=== PATIENT | male | born 1945 | race Caucasian/White ===

== ENCOUNTER 2018-05-15 09:36 | Emergency (ER) | payer MEDICARE, BC ==
[2018-05-15 10:16] LABS: #Lymphocytes 1.2 thou/uL (1.20-3.40); #Monocytes 0.3 thou/uL (0.11-0.59); #Neutrophils 2.7 thou/uL (1.40-6.50); %Basophils 0.2 % (0.0-1.0); %Eosinophils 0.6 % (0.0-10.0); %Lymphocytes 28.4 % (21.0-51.0); %Monocytes 8.1 % (0.0-10.0); %Neutrophils 62.7 % (42.0-75.0); Hemoglobin 15.7 g/dL (14.0-18.0); Mean Corpuscular HGB CONC 33.8 g/dL (32.0-36.0); Mean Corpuscular Hemoglobin 33.5 pg (27.0-31.0); Mean Corpuscular Volume 98.9 fL (78.0-98.0); Mean Platelet Volume 7.5 fL (7.4-10.4); Platelet Count 193 thou/uL (130-400); RBC Distribution Width 11.3 % (11.5-14.5); Red Blood Cell (RBC) Count 4.68 mill/uL (4.70-6.10); White Blood Cell (WBC) Count 4.2 thou/uL (4.8-10.8)
[2018-05-15 10:38] LABS: ALT (SGPT) 23 U/L (8-55); AST (SGOT) 22 U/L (5-34); Albumin 4.1 g/dL (3.4-4.8); Alkaline Phosphatase 83 U/L (40-150); Anion Gap 13 mmol/L (10-20); BUN (Urea Nitrogen) 13 mg/dL (8.4-25.7); Bilirubin, Total 0.8 mg/dL (0.2-1.2); CK (CPK) 102 U/L (30-200); Calc. Creatinine Clearance 0 mL/min (70-130); Calcium 9.2 mg/dL (7.8-10.44); Carbon Dioxide 26 mmol/L (23-31); Chloride 105 mmol/L (98-107); Estimated GFR-MDRD 90; Globulin 3.1 g/dL (2.4-3.5); Glucose 131 mg/dL (83-110); Potassium 4.2 mmol/L (3.5-5.1); Protein, Total 7.2 g/dL (5.8-8.1); Sodium 140 mmol/L (136-145)
--- NOTE | 2018-05-15 10:41 | RAD ---
SINGLE VIEW CHEST: Date: 05/15/18 COMPARISON: 01/24/16. HISTORY: Dizziness for 1 hour this morning. FINDINGS: Single view of the chest shows a normal sized cardiomediastinal silhouette. There is no evidence of c onsolidation, mass, or pleural effusion. The bones are unremarkable. IMPRESSION: No evidence of acute cardiopulmonary disease. POS: [facility]
--- NOTE | 2018-05-18 13:33 | EKG ---
Test Reason : Blood Pressure : / mmHG Vent. Rate : 073 BPM Atrial Rate : 073 BPM P-R Int : 104 ms QRS Dur : 092 ms QT Int : 400 ms P-R-T Axes : 035 -11 039 degrees QTc Int : 440 ms Sinus rhythm with short PA with Premature supraventricular complexes and with occasional Premature ve ntricular complexes Minimal voltage criteria for LVH, may be normal variant Nonspecific ST abnormality Abnormal ECG Confirmed by STALIN COFFEY, DOMINIQUE ([id number]), purchasing expeditor CHEYANNE GIL ([id number]) on 05/18/2018 1:32:52 PM Referred By: Confirmed By:DOMINIQUE GANT MD
== END 2018-05-15 11:38 | disposition home or self-care (01) ==
LOC: ERS 09:36
DX: R55 Syncope and collapse (principal); I10 Essential (primary) hypertension; E78.5 Hyperlipidemia, unspecified; Z79.899 Other long term (current) drug therapy
CPT/HCPCS: 36415; 71045; 80053; 82550; 83880; 84484; 85025; 93005

== ENCOUNTER 2018-08-05 10:01 | Emergency (ER) | payer MEDICARE, BC ==
[~2018-08-05 10:01] MED LIST: ISOVUE-370 76%-LOCM 1 ML ONE
[2018-08-05 10:44] LABS: #Lymphocytes 1.4 thou/uL (1.20-3.40); #Monocytes 0.5 thou/uL (0.11-0.59); %Basophils 0.1 % (0.0-1.0); %Eosinophils 0.5 % (0.0-10.0); %Lymphocytes 23.6 % (21.0-51.0); %Monocytes 8.3 % (0.0-10.0); %Neutrophils 67.6 % (42.0-75.0); Hemoglobin 15.1 g/dL (14.0-18.0); Mean Corpuscular HGB CONC 33.5 g/dL (32.0-36.0); Mean Corpuscular Hemoglobin 32.9 pg (27.0-31.0); Mean Corpuscular Volume 98.3 fL (78.0-98.0); Mean Platelet Volume 7.4 fL (7.4-10.4); Platelet Count 229 thou/uL (130-400); Red Blood Cell (RBC) Count 4.58 mill/uL (4.70-6.10); White Blood Cell (WBC) Count 5.9 thou/uL (4.8-10.8)
[2018-08-05 11:07] LABS: ALT (SGPT) 21 U/L (8-55); AST (SGOT) 21 U/L (5-34); Albumin 4.2 g/dL (3.4-4.8); Alkaline Phosphatase 74 U/L (40-150); Anion Gap 13 mmol/L (10-20); BUN (Urea Nitrogen) 14 mg/dL (8.4-25.7); Calc. Creatinine Clearance 0 mL/min (70-130); Calcium 9.4 mg/dL (7.8-10.44); Carbon Dioxide 24 mmol/L (23-31); Chloride 105 mmol/L (98-107); Estimated GFR-MDRD 84; Globulin 2.8 g/dL (2.4-3.5); Glucose 141 mg/dL (83-110); Sodium 138 mmol/L (136-145)
[2018-08-05 11:30] LABS: Bilirubin Negative (Negative); Blood, Urine Negative (Negative); Glucose, Urine (Dipstick) Negative (Negative); Leukocyte Negative (Negative); Nitrite Negative (Negative); Protein, Urine (Dipstick) Negative (Neg-Trace); Specific Gravity, Urine 1.015 (1.005-1.030); Urobilinogen 0.2 mg/dL (0.2-1.0)
[2018-08-05 11:32] LABS: Clarity Clear (Clear)
--- NOTE | 2018-08-05 11:56 | CT ---
CT ABDOMEN AND PELVIS WITH IV CONTRAST: HISTORY: Abdominal pain. FINDINGS: The lung bases are unremarkable. No calcified gallstones are seen. The liver, spleen, pancreas, adr enal glands, and right kidney are normal. A tiny low-density lesion in the left kidney is likely cys t. A tiny nonobstructing left renal calculus is seen in the inferior pole. No free air, free fluid, or lymphadenopathy is seen in the abdomen or pelvis. There are vascular liang cifications without evidence of aneurysmal dilatation of the abdominal aorta. There are degenerative changes in the spine. There are bilateral hip arthroplasties. The small bowel loops are not abnormally dilated. A normal-appearing appendix is seen. There is col onic diverticulosis without evidence of diverticulitis. A small hiatal hernia is present. IMPRESSION: 1. No evidence of appendicitis. 2. Colonic diverticulosis without diverticulitis. 3. Small hiatal hernia. 4. Tiny nonobstructing left renal calculus. POS: [facility]
== END 2018-08-05 12:11 | disposition home or self-care (01) ==
LOC: ERS 10:01
DX: R10.30 Lower abdominal pain, unspecified (principal); R11.2 Nausea with vomiting, unspecified; I10 Essential (primary) hypertension; E78.5 Hyperlipidemia, unspecified; Z79.899 Other long term (current) drug therapy
CPT/HCPCS: 36415; 74177; 80053; 81003; 85025; Q9966

== ENCOUNTER 2018-12-20 10:55 | Emergency (ER) | payer MEDICARE, BC ==
[2018-12-20 11:26] LABS: Bilirubin Negative (Negative); Blood, Urine Negative (Negative); Clarity Clear (Clear); Glucose, Urine (Dipstick) Normal (Negative); Leukocyte Negative Leu/uL (Negative); Nitrite Negative (Negative); Protein, Urine (Dipstick) Negative (Neg-Trace); Urobilinogen Normal mg/dL (Less than 2)
[2018-12-20 11:28] LABS: #Lymphocytes 1.4 thou/uL (1.20-3.40); #Monocytes 0.5 thou/uL (0.11-0.59); #Neutrophils 4.9 thou/uL (1.40-6.50); %Basophils 0.6 % (0.0-1.0); %Eosinophils 0.4 % (0.0-10.0); %Lymphocytes 20.4 % (21.0-51.0); %Neutrophils 71.6 % (42.0-75.0); Hemoglobin 15.6 g/dL (14.0-18.0); Mean Corpuscular HGB CONC 33.7 g/dL (32.0-36.0); Mean Corpuscular Hemoglobin 33.2 pg (27.0-31.0); Mean Corpuscular Volume 98.8 fL (78.0-98.0); Mean Platelet Volume 7.4 fL (7.4-10.4); Platelet Count 214 thou/uL (130-400); RBC Distribution Width 11.2 % (11.5-14.5); White Blood Cell (WBC) Count 6.8 thou/uL (4.8-10.8)
[2018-12-20 12:01] LABS: ALT (SGPT) 17 U/L (8-55); AST (SGOT) 20 U/L (5-34); Albumin 4.2 g/dL (3.4-4.8); Alkaline Phosphatase 76 U/L (40-150); Anion Gap 13 mmol/L (10-20); BUN (Urea Nitrogen) 12 mg/dL (8.4-25.7); Bilirubin, Total 0.8 mg/dL (0.2-1.2); Calc. Creatinine Clearance 0 mL/min (70-130); Calcium 9.4 mg/dL (7.8-10.44); Carbon Dioxide 25 mmol/L (23-31); Chloride 105 mmol/L (98-107); Estimated GFR-MDRD 89; Globulin 3.2 g/dL (2.4-3.5); Glucose 116 mg/dL (83-110); Lipase 28 U/L (8-78); Potassium 3.9 mmol/L (3.5-5.1); Protein, Total 7.4 g/dL (5.8-8.1); Sodium 139 mmol/L (136-145)
== END 2018-12-20 13:15 | disposition home or self-care (01) ==
LOC: ERS 10:55
DX: R10.9 Unspecified abdominal pain (principal); G89.29 Other chronic pain; I10 Essential (primary) hypertension; E78.5 Hyperlipidemia, unspecified; Z79.899 Other long term (current) drug therapy
CPT/HCPCS: 36415; 80053; 81003; 83690; 85025; 99284

== ENCOUNTER 2019-01-26 12:43 | Outpatient (CLI) | payer MEDICARE, BC ==
--- NOTE | 2019-01-26 15:40 | MRI ---
MRI CERVICAL SPINE: Multiplanar, multisequential imaging of the cervical spine obtained. INDICATION: Cervical spondylosis. Neck pain. FINDINGS: Cervical vertebrae maintain height and alignment. There are degenerative changes in the cervical spi ne. Loss of disk space at C5-6 and C6-7. Anterior osteophytes are prominent at both of these levels . Vertebral body signal is normal. No compression deformity or vertebral body edema identified. At C2-3, mild disk bulge and spondylosis flatten the thecal sac. No cord impingement. Mild right fo raminal encroachment due to disk bulge and spondylosis. At C3-4, mild anterolisthesis which measures approximately 3 mm. There is associated disk bulge and spondylosis which abuts the anterior cord. Mild right foraminal stenosis due to facet and uncinate h ypertrophy. At C4-5, mild disk bulge and spondylosis flatten the thecal sac and efface the anterior subarachnoid space. Mild right foraminal narrowing due to facet and uncinate hypertrophy. No cord impingement. At C5-6, disk bulge and spondylosis impinge and mildly flatten the anterior cord. Findings are more prominent paracentrally to the right where these changes abut the anterior cord on the right. There is right foraminal stenosis due to hypertrophic change. At C6-7, disk bulge and spondylosis flatten the thecal sac and mildly efface the anterior subarachnoi d space. No cord impingement. Mild foraminal narrowing on the right due to facet and uncinate hyper trophy. At C7-T1, mild disk bulge and spondylosis. Anterior subarachnoid space is preserved. The cord signal appears normally maintained with no evidence of myelomalacia. IMPRESSION: Degenerative disk changes in the cervical spine as described above. Cord impingement is seen at C3-4 and C5-6 with foraminal encroachment as described above. POS: [facility]
== END 2019-01-26 12:44 | disposition home or self-care (01) ==
LOC: BICMRI 12:43
PROVIDERS: ATTEND Physician Assistant
DX: M47.812 Spondylosis without myelopathy or radiculopathy, cervical region (principal); M50.30 Other cervical disc degeneration, unspecified cervical region; M25.80 Other specified joint disorders, unspecified joint
CPT/HCPCS: 72141

== ENCOUNTER 2019-03-09 11:01 | Outpatient (CLI) | payer MEDICARE, BC ==
--- NOTE | 2019-03-09 11:42 | RAD ---
XR Cervical Spine 4 View Min: 03/09/2019 12:00 AM CLINICAL INDICATION: Neck pain COMPARISON: 05/17/2018 FINDINGS: Fracture:No fracture. Arthropathy:There is severe multilevel degenerative change, with endplate sclerosis, marginal osteoph ytosis, disc space narrowing and facet osteoarthritis. Enthesophyte formation at the ventral base of the dens is noted. Slight accentuation of lumbar lordosis. Trace spondylolisthesis at C4-5. There is mild translational motion associated with this level of lis thesis, confirmed with flexion and extension positioning. Incidental findings:Atherosclerosis with vascular calcification. IMPRESSION: Severe multilevel degenerative change of the cervical spine. There is grade I spondylolis thesis of C4-5 with associated abnormal translational motion, mild in degree.
== END 2019-03-09 11:02 | disposition home or self-care (01) ==
LOC: BICRAD 11:01
PROVIDERS: ATTEND Neurological Surgery
DX: M54.2 Cervicalgia (principal); M47.812 Spondylosis without myelopathy or radiculopathy, cervical region; M43.12 Spondylolisthesis, cervical region
CPT/HCPCS: 72050

== ENCOUNTER 2019-04-27 13:43 | Outpatient (CLI) | payer MEDICARE, BC ==
--- NOTE | 2019-04-27 14:18 | MRI ---
EXAM: MRI of the brain without contrast HISTORY: Neck pain and dizziness COMPARISON: None TECHNIQUE: Multiplanar multisequence MR images were obtained of the brain without IV contrast. FINDINGS: The brain demonstrates normal signal intensity on all obtained sequences. No restricted diffusion. No hydronephrosis. No extra-axial fluid collection or intracranial hemorrhage. The expected flow voids are present. Corpus callosum, pituitary, and craniocervical junction are within normal limits. The calvarium and overlying soft tissues are unremarkable. The paranasal sinuses and mastoid air cells are well aerated. IMPRESSION: No evidence of acute intracranial abnormality.
== END 2019-04-27 13:44 | disposition home or self-care (01) ==
LOC: MRI 13:43
PROVIDERS: ATTEND Psychiatry & Neurology Neurology
DX: R25.8 Other abnormal involuntary movements (principal)
CPT/HCPCS: 70551

== ENCOUNTER 2019-05-06 08:42 | Outpatient (CLI) | payer MEDICARE, BC ==
--- NOTE | 2019-05-06 14:13 | NM ---
NUCLEAR MEDICINE BRAIN IMAGING: HISTORY: Other abnormal involuntary movements TECHNIQUE: A Eunice scan with axial tomographic images of the brain was obtained 3 hours following the intravenous administration of 5mCi I-123 Ioflupane. The patient was pretreated with 130 mg of oral potassium iodide 1 hour prior to the injection. FINDINGS: There is normal symmetric uptake in the striata bilaterally, demonstrating symmetric, crescent-shaped focal regions of activity mirrored about the median plane. IMPRESSION: Normal exam.
== END 2019-05-06 08:43 | disposition home or self-care (01) ==
LOC: NM 08:42
PROVIDERS: ATTEND Psychiatry & Neurology Neurology
DX: R25.8 Other abnormal involuntary movements (principal)
CPT/HCPCS: 78607; A9584

== ENCOUNTER 2019-07-21 08:43 | Outpatient (CLI) | payer MEDICARE, BC ==
[2019-07-21 16:14] LABS: Hemoglobin 14.1 g/dL (14.0-18.0); Mean Corpuscular HGB CONC 34.3 g/dL (32.0-36.0); Mean Corpuscular Hemoglobin 34.2 pg (27.0-31.0); Mean Corpuscular Volume 99.6 fL (78.0-98.0); Mean Platelet Volume 7.9 fL (7.4-10.4); Platelet Count 199 thou/uL (130-400); RBC Distribution Width 10.8 % (11.5-14.5); Red Blood Cell (RBC) Count 4.12 mill/uL (4.70-6.10); White Blood Cell (WBC) Count 4.5 thou/uL (4.8-10.8)
[2019-07-21 16:19] LABS: Prothrombin Time 12.9 SEC (12.0-14.7)
== END 2019-07-21 08:44 | disposition home or self-care (01) ==
LOC: LABBT 08:43
PROVIDERS: ATTEND Neurological Surgery
DX: Z01.818 Encounter for other preprocedural examination (principal); M48.02 Spinal stenosis, cervical region; M47.812 Spondylosis without myelopathy or radiculopathy, cervical region
CPT/HCPCS: 85027; 85610; 85730; 93005; 93010

== ENCOUNTER 2019-07-22 07:57 | Day surgery (SDC) | payer MEDICARE, BC ==
[2019-07-21 14:44] VITALS: BMI 29.0
[2019-07-22] MEDS ORDERED: Lidocaine 1% (PF) 30 ML VIAL ONE (10:32)
[2019-07-22] MEDS ORDERED: Heparin (Artline) 500 ML ONE (10:32)
[2019-07-22] MEDS ORDERED: Iopamidol 370 76% 50 ML VIAL FS ONE (10:51)
[2019-07-22] MEDS ORDERED: Hydrocortisone 1% Cream 30 GM TUBE ONE (14:06)
--- NOTE | 2019-07-22 14:49 | OP ---
DATE OF PROCEDURE: 07/22/2019 PREOPERATIVE DIAGNOSIS: History of deep vein thrombosis and pulmonary embolism with need to be off his anticoagulation regimen for spine surgery. POSTOPERATIVE DIAGNOSIS: History of deep vein thrombosis and pulmonary embolism with need to be off his anticoagulation regimen for spine surgery. PROCEDURES PERFORMED: 1. Removable inferior vena caval filter placement. 2. Inferior vena cavogram. ANESTHESIA: 1% lidocaine for local. ESTIMATED BLOOD LOSS: Minimal. TOTAL FLUORO TIME: 0.3 minutes. TOTAL CONTRAST: 4 mL. DESCRIPTION OF PROCEDURE: After consent was obtained, the patient was brought to the slab off mill tender and placed in supine position on slab off mill tender table. Appropriate monitoring was placed. Groins were prepped and draped in usual sterile fashion. Using ultrasound guidance, the right groin was anesthetized with 1% lidocaine. Percutaneous access was obtained to the common femoral vein with ultrasound guidance and the cavogram sheath placed at the level of L2. Hand-injected vena cavogram was performed. The renal veins were localized at the level of L1. The vena cava measured less than 2.5 cm in diameter. The tip of the filter was positioned at the L1-L2 junction. Filter was deployed and seated nicely. The hook is facing down towards the foot. Sheath was then removed and manual pressure held for hemostasis. The patient tolerated the procedure well, will be sent home today. Job ID: [id number]
== END 2019-07-22 14:15 | disposition home or self-care (01) ==
LOC: SDC 07:57
PROVIDERS: ATTEND Thoracic Surgery (Cardiothoracic Vascular Surgery)
DX: D68.59 Other primary thrombophilia (principal); I10 Essential (primary) hypertension; Z86.718 Personal history of other venous thrombosis and embolism; E78.2 Mixed hyperlipidemia; Z79.01 Long term (current) use of anticoagulants; Z79.899 Other long term (current) drug therapy; Z86.711 Personal history of pulmonary embolism; Z88.1 Allergy status to other antibiotic agents; Z88.2 Allergy status to sulfonamides
CPT/HCPCS: 37191; 75825; C1769; J1644; J2001; Q9967

== ENCOUNTER 2019-07-25 05:48 | Observation (INO) | payer MEDICARE, BC ==
--- NOTE | 2019-07-20 20:24 | HP ---
CHIEF COMPLAINT: "I'm here for neck surgery." HISTORY OF PRESENT ILLNESS: Mr. Mahoney is a 74-year-old man, still denies any significant imbalance. His hands go numb on occasion. It is hard for him to do the things he likes to do due to his neck pain and his hand numbness. Dr. Kenan Trevino will place IVC filter prior to his surgery due to his history of DVTs with pulmonary emboli. His IVC filter will be removed after surgery. PAST MEDICAL HISTORY: Cervical spondylosis with myopathy and radiculopathy, prostate cancer, John's esophagus, hyperlipidemia, pulmonary embolism with right-sided leg DVT, acute pancreatitis, hypertension, pulmonary embolism. PAST SURGICAL HISTORY: Bilateral hip surgery, hernioplasty, robotic-assisted radical prostatectomy. PAST FAMILY HISTORY: Father . Mother , diagnosed with stroke. Parents in their mid to late 70s. SOCIAL HISTORY: The patient is a nonsmoker. Occasionally drinks alcohol. Does not use caffeine. He has 3 girls. ALLERGIES: SEPTRA, GETS A RASH; BACTRIM, GETS A RASH. CURRENT MEDICATIONS: Pantoprazole, losartan, amlodipine, promethazine, Eliquis, atorvastatin, Tylenol, multivitamin, Lexapro, gabapentin, tramadol. REVIEW OF SYSTEMS: CONSTITUTION: Denies fever or chills. HEENT: Denies change in vision or hearing. CARDIAC: Denies chest pain, shortness of breath, diaphoresis. PULMONARY: Denies shortness of breath, cough, hemoptysis. GI: Denies abdominal pain, nausea, vomiting, diarrhea, change in stool formation and consistency. : Denies trouble with urination, frequency of urination, bloody urine. SKIN: Denies rash, bruising, bleeding, skin masses. MUSCULOSKELETAL: As per history of present illness. NEUROLOGICAL: As per history of present illness. PSYCHOLOGICAL: Denies anxiety, depression, personality changes, crying. PHYSICAL EXAMINATION: HEENT: Pupils are equal. NECK: Normal, soft, and supple. No masses are noted. ROM is intact and nonpainful. NEUROLOGICAL: Awake, alert, and oriented x3. Memory, attention, fund of knowledge, and language are normal. Cranial nerves 2-12 grossly intact. Upper extremities, tandem gait is slow and deliberate. He is a bit off balance. There is normal strength in the deltoids and the biceps. The right triceps is slightly weaker than the left. The wrist extensors are strong. The finger extensors are slightly weaker on the right than on the left. The interossei are strong. There is no area of dermatomal sensory loss. Reflexes are brisk, but symmetric. There is a bit of clonus in the right ankle with 4 to 5 beats of a tiny amount of clonus. There are 2 beats on the left. Muscle tone is notable for a little bit of cogwheeling. This goes away with repeated motion. IMAGING FINDINGS: Disk disease at C3 through 4 that caused stenosis. At C4-5, the canal is open. At C5 through 6, there is stenosis and foraminal disease. At C6-7, there is severe foraminal disease. At C7-T1, the only foraminal disease is on the left side. On flexion-extension views, there is mild motion at C4-5, but it is not stable. IMPRESSION: 1. C7 radicular weakness versus upper motor neuron weakness, right arm. 2. Mild myopathy. 3. Extrapyramidal. PLAN: ACDF at C5-6 and C6-7 and anterior cervical diskectomy with arthroplasty at C3-4. The patient will need to be off Eliquis 1 week before surgery and 2 weeks after surgery. INFORMED CONSENT: I discussed the indications, risks, benefits, alternatives, as well as expected outcomes from anterior cervical diskectomy and fusion. The risks discussed include, but are not limited to, bleeding, infection, CSF leak, damage to the trachea, esophagus, or vocal cords, dysphagia, spinal cord injury, wheelchair dependency, ventilator dependency, stroke, major blood vessel injury, and anesthesia complications including . Long-term risks include need for future surgery or hardware failure. The patient expresses understanding of our discussion and would like to proceed. Dr. Kenan Trevino is placing a temporary IVC filter before surgery and he will remove it after surgery. Job ID: [id number]
[2019-07-21 15:16] VITALS: BMI 29.0
[2019-07-25] MEDS ORDERED: Thrombin 5000 UNITS/5 ML VIAL ONE (06:12)
[2019-07-25] MEDS ORDERED: Fentanyl 250 MCG/5 ML VIAL ONE (06:26)
[2019-07-25] MEDS ORDERED: Phenylephrine 10 MG/ML VIAL ONE (08:31)
[2019-07-25] MEDS ORDERED: Rocuronium Bromide 50 MG/5 ML VIAL ONE (09:48)
[2019-07-25] MEDS ORDERED: Dexamethasone 20 MG/5 ML VIAL ONE (10:08)
[2019-07-25] MEDS ORDERED: Ondansetron PF 4 MG/2 ML Vial ONE (10:08)
[2019-07-25] MEDS ORDERED: PROPOFOL 200 MG/20 ML VIAL ONE (10:08)
[2019-07-25] MEDS ORDERED: Lidocaine 1% PF 5 ML VIAL ONE (10:08)
[2019-07-25] MEDS ORDERED: EPHEDRINE 25 MG/5 ML SYRINGE ONE (10:08)
[2019-07-25] MEDS ORDERED: Rocuronium Bromide 10 MG/ML (10ML VIAL) ONE (10:08)
[2019-07-25] MEDS ORDERED: PHENYLEPHRINE-NS 100 MCG/ML 10 ML SYRINGE ONE (10:08)
[2019-07-25] MEDS ORDERED: Glycopyrrolate 0.2 MG/ML 5 ML SYRINGE ONE (10:08)
[2019-07-25] MEDS ORDERED: Fentanyl 100 MCG/2 ML VIAL ONE ×3 (12:06→13:48)
[2019-07-25] MEDS ORDERED: Promethazine HCl 25 MG/ML VIAL SLOW IVP PRN (12:07)
[2019-07-25] MEDS ORDERED: Ondansetron HCl/PF 4 MG/2 ML Vial IVP PRN (12:07)
[2019-07-25] MEDS ORDERED: Promethazine HCl 25 MG/ML VIAL IM PRN ×2 (12:07→12:12)
[2019-07-25] MEDS ORDERED: diphenhydrAMINE 25 MG CAP PO PRN (12:12)
[2019-07-25] MEDS ORDERED: Acetaminophen 650 MG Suppository PR PRN (12:12)
[2019-07-25] MEDS ORDERED: Acetaminophen 325 MG TAB PO PRN (12:12)
[2019-07-25] MEDS ORDERED: traMADol HCl 50 MG TAB PO PRN ×2 (12:12)
[2019-07-25] MEDS ORDERED: Morphine 2 MG/ML SYRINGE SLOW IVP PRN (12:12)
[2019-07-25] MEDS ORDERED: Bisacodyl 10 MG SUPP PR PRN (12:12)
[2019-07-25] MEDS ORDERED: Promethazine HCl 12.5 MG SUPP PR PRN (12:12)
[2019-07-25] MEDS ORDERED: Mag-Al 1200 mg/1200 mg/30 ML UDCUP PO PRN (12:12)
[2019-07-25] MEDS ORDERED: Milk Of Magnesia 30 ML UDCUP PO PRN (12:12)
[2019-07-25] MEDS ORDERED: Acetaminophen/Codeine 30-300mg Tablet PO PRN (12:12)
[2019-07-25] MEDS ORDERED: diphenhydrAMINE 50 MG/ML VIAL IVP PRN (12:12)
[2019-07-25] MEDS ORDERED: Ondansetron PF 4 MG/2 ML Vial IVP PRN (12:12)
[2019-07-25] MEDS ORDERED: Promethazine 25 MG TAB PO PRN (12:12)
[2019-07-25] MEDS ORDERED: Scopolamine 1.5 mg/72 hour Patch TD SCH ×2 (13:00→16:00)
[2019-07-25] MEDS ORDERED: CEFAZOLIN 2 GM in Premix Bag 1 BAG IVPB SCH ×2 (14:00→19:00)
[2019-07-25] MEDS: Morphine 4 MG/ML VIAL SLOW IVP PRN ×2 (15:05→16:12)
[2019-07-25] MEDS: Gabapentin 300 MG CAP PO SCH ×2 (16:10→21:02)
[2019-07-25] MEDS: Sodium Chloride 0.9% 1,000 ML IV SCH (16:10)
[2019-07-25] MEDS: tiZANidine HCl 4 MG TAB PO PRN (17:37)
[2019-07-25] MEDS: Acetaminophen/Codeine 30-300mg Tablet PO PRN ×2 (17:37→20:59)
--- NOTE | 2019-07-25 18:27 | CON ---
DATE OF CONSULTATION: PRIMARY CARE PROVIDER: Dr. Howell. CHIEF COMPLAINT: Management of medical comorbidities. HISTORY OF PRESENT ILLNESS: Mr. Mahoney is a pleasant 74-year-old gentleman, who was seen at [facility] on 07/25/2019. Earlier today, he underwent cervical spine surgery. Hospitalist Service has been consulted for management of medical comorbidities. The patient denies any chest pain or shortness of breath. He denies any fevers or chills. He reports that there is no pain at the surgical site. He denies any abdominal pain. He denies any nausea, vomiting, or diarrhea. REVIEW OF SYSTEMS: All systems were reviewed and found to be negative except for the pertinent positives mentioned above. PAST MEDICAL HISTORY: Cervical spondylosis with myopathy and radiculopathy, prostate cancer, John's esophagus, dyslipidemia, pulmonary embolism with right-sided leg DVT, acute pancreatitis, hypertension. PAST SURGICAL HISTORY: Bilateral hip surgery, hernioplasty, robotic-assisted radical prostatectomy, and a temporary IVC filter prior to this surgery because of the need to hold anticoagulation. SOCIAL HISTORY: Occasional alcohol use. No tobacco or recreational drug use. FAMILY HISTORY: Stroke in his mother. ALLERGIES: SEPTRA. HOME MEDICATIONS: 1. Acetaminophen 650 mg 3 times a day. 2. Norvasc 5 mg at bedtime. 3. Eliquis 5 mg 2 times a day. 4. Azelastine one spray to each naris daily. 5. Lovenox 40 mg subcutaneously two times a day. 6. Escitalopram 10 mg daily. 7. Esomeprazole 40 mg 2 times a day. 8. Gabapentin 300 mg 3 times a day. 9. Cozaar 25 mg daily. 10. Multivitamins one tablet daily. 11. Ranitidine 300 mg daily. 12. Tramadol p.r.n. 13. Atorvastatin 10 mg at bedtime. 14. Montelukast 10 mg every evening. PHYSICAL EXAMINATION: GENERAL: On examination, Mr. Mahoney is awake and alert, not in acute distress. VITAL SIGNS: Blood pressure is 134/75, pulse 68, respiratory rate 12, and oxygen saturation 96% on 4 L by nasal cannula. He is afebrile. EYES: No scleral icterus, no conjunctival pallor. ENT: Moist mucosal membranes. No oropharyngeal erythema or exudates. NECK: Supple, dressing present, trachea midline. RESPIRATORY: Accessory muscles of breathing are not active. Chest wall movements are symmetric bilaterally. Lungs are clear to auscultation without wheeze, rhonchi, or crepitations. CARDIOVASCULAR: S1 and S2 are heard, regular. Peripheral pulses palpable. ABDOMEN: Soft, nontender, bowel sounds are heard. NEUROLOGIC: Cranial nerves 2 through 12 are intact. MUSCULOSKELETAL: The patient is able to move all 4 extremities. SKIN: No rashes. LYMPHATIC: No cervical lymphadenopathy. PSYCHIATRIC: Normal mood, normal affect. The patient is oriented to person, place, and time. LABORATORY DATA: Mr. Mahoney's labs and investigations were reviewed. On 07/21, he had white count of 4500, normal hemoglobin of 14.1, normal platelet count, INR 1.0, and PTT of 29. ASSESSMENT AND PLAN: Mr. Mahoney is a pleasant 74-year-old gentleman, who was seen at [facility] on 07/25/2019, for management of medical comorbidities. His problem list includes: 1. Hypertension: Continue Cozaar and amlodipine, monitor vital signs and titrate antihypertensives as needed. P.r.n. IV hydralazine for blood pressure spikes. 2. Dyslipidemia: Continue Lipitor. 3. Gastroesophageal reflux disease: Continue his omeprazole. 4. Deep venous thrombosis prophylaxis and pain management per Primary Service. Many thanks for allowing me to participate in your patient's care. Please feel free to contact me with any questions or concerns. LEVEL OF RISK: Moderate. LEVEL OF COMPLEXITY: Moderate. Job ID: [id number]
--- NOTE | 2019-07-25 18:31 | OP ---
DATE OF PROCEDURE: 07/25/2019 GRAIN SAMPLER: Josh Hirsch PA-C PREOPERATIVE INDICATION: Prevent neurological deterioration, treat pain. 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 PROCEDURES PERFORMED: 1. Anterior cervical diskectomy, intervertebral arthrodesis, placement of intervertebral biomechanical device and anterior cervical plating at C5-C6 and C6-C7, local morselized autograft, morselized allograft. 2. Anterior cervical diskectomy, intervertebral placement of disk arthroplasty device at C3-C4. 3. Operating microscope. PREOPERATIVE MEDICATION: Ancef 2 g IV. DRAIN NUMBER: Zero. DRAIN TYPE: None. DESCRIPTION OF PROCEDURE: The patient was brought to the operating room. General endotracheal anesthesia was induced. The patient was carefully positioned on the operating table with his head supported by doughnut shaped headrest. A lateral fluoro radiograph was used to plan our incision. The right side of the neck was sterilely prepped and draped. We opened our incision with a 10 blade knife and we controlled bleeding with bipolar cautery. We dissected sharply to the platysma and we cut this muscle in line with our incision. We continued our dissection medial to the sternocleidomastoid and lateral to the trachea and esophagus. We arrived to the prevertebral space. We placed a marker at C3-4 and took a lateral fluoro radiograph to confirm the levels upon which we were operating. We then elevated the longus colli muscles off the anterior surface of C3, C4, C5, C6, and C7. We started at C3-4 with our disk arthroplasty procedure. We place lateral retractors under the longus colli muscles and distraction pins in the C3 and C4 vertebral body. We distracted across the interspace and incised it. We removed disk contents using curettes and rongeurs and brought the operating microscope into the field. Under microscopic magnification using microsurgical techniques, we removed the remainder of the intervertebral disk. We removed uncovertebral joint and widened the foramina anteriorly. We accessed the ventral epidural space with a micro curette, and used Kerrison rongeurs to remove posterior osteophytes and posterior longitudinal ligament across the entire interspace from one neural foramen to the other until adequate decompression was achieved. We then prepared the endplates. Using a trial device, we measured the interspace to fit a 5 mm disk arthroplasty device 19 mm in width and 15 mm in depth. The appropriately-sized disk arthroplasty device was brought into the field. This Mobi-C device was tamped into place with the radiographic guidance to the appropriate depth. We then removed the application device entirely and lateral fluoro radiographs confirmed adequate positioning of our instrumentation. We squeezed our distraction pins so that the endplates encountered the device completely. We then removed our distraction pins and then turned our attention to C5 through C7. We moved our lateral retractors under the longus colli muscles at C6. We placed distraction pins at C5 and C7 and distracted across both of the intervening interspaces. We incised these interspaces and removed disk contents using curettes and rongeurs. With a micro curette, we accessed the ventral epidural space behind the posterior longitudinal ligament. With Kerrison rongeurs, we removed posterior longitudinal ligament and posterior osteophytes across the entire interspace from one neuroforamen all the way to the other at both C5-6 and again at C6-C7. With our decompression secured, we turned our attention to arthrodesis. Using curettes, we prepared the endplates. We measured the height of each interspace to 7 mm. Two separate 7 mm PEEK intervertebral grafts were brought into the field. Osteophytes removed during our decompression were morselized after they were cleaned of soft tissue attachments. The morselized bone was added to demineralized bone matrix to form a fusion substrate and that substrate was packed into the PEEK devices. Those devices were advanced into the respective interspaces under radiographic guidance to the appropriate depth. We then removed our distraction pins and the operative microscope. A 31 mm anterior cervical plate was brought into the field. We drilled test pilot holes through the plate into the vertebral bodies at C5, C6, and C7, and we affixed the plate using 14 mm screws. We used 6 angle screws at C7 and variable angle screws at C5 and C6. We engaged the locking mechanism over each of the 6 screws. We irrigated copiously with bacitracin irrigation. AP and lateral fluoro radiographs confirmed adequate positioning of all of our instrumentation. We irrigated once again with bacitracin irrigation. Then, we closed the wound in anatomical layers and applied a sterile dressing. This was a clean case, no contamination. Job ID: [id number]
[2019-07-25] MEDS ORDERED: hydrALAZINE 20 MG/ML VIAL SLOW IVP PRN (19:56)
[2019-07-25] MEDS: CEFAZOLIN 2 GM in Premix Bag 1 BAG IVPB SCH (20:54)
[2019-07-25] MEDS ORDERED: Atorvastatin Calcium 10 MG TAB PO SCH (21:00)
[2019-07-25] MEDS ORDERED: Montelukast Sodium 10 mg Tablet PO SCH (21:00)
[2019-07-25] MEDS ORDERED: Amlodipine 5 MG TAB PO SCH (21:00)
[2019-07-26] MEDS: Morphine 4 MG/ML VIAL SLOW IVP PRN ×2 (00:51→06:10)
[2019-07-26] MEDS: tiZANidine HCl 4 MG TAB PO PRN ×2 (00:57→08:52)
[2019-07-26] MEDS: CEFAZOLIN 2 GM in Premix Bag 1 BAG IVPB SCH (04:01)
[2019-07-26] MEDS: Sodium Chloride 0.9% 1,000 ML IV SCH ×2 (04:01→14:10)
[2019-07-26] MEDS ORDERED: Tamsulosin HCl 0.4 MG CAP PO SCH (06:00)
--- NOTE | 2019-07-26 07:48 | PRG ---
DATE OF SERVICE: 07/26/2019 I saw Mr. Mahoney in his room this morning. He is one day out from an ACD arthroplasty at C3-C4 and an ACDF at C5-C6 and C6-C7. There are no complaints overnight. There is oxygen tubing in his nose this morning. Among the electronically charted vital signs, there are no fevers recorded. Blood pressures have been between the 120s and 150s. Oxygen saturation is in 94% range. On examination, Mr. Mahoney has good function in his hands. He tells me that they are subjectively improved since surgery and feels more fluid and more like his own hands and fingers again. He has had no trouble with eating and got through dinner just fine. Today, he has had breakfast. He is to hold on incentive spirometer. Walk significantly. Place the collar on for out of bed activities, and once he is safe for his activities of daily living, he can be discharged. Job ID: [id number] [id number]
[2019-07-26] MEDS: Gabapentin 300 MG CAP PO SCH ×2 (08:48→14:10)
[2019-07-26] MEDS: Acetaminophen/Codeine 30-300mg Tablet PO PRN ×2 (08:52→14:10)
[2019-07-26] MEDS ORDERED: Multivit, Therapeutic 1 TAB PO SCH (09:00)
[2019-07-26] MEDS ORDERED: Escitalopram Oxalate 10 mg Tablet PO SCH (09:00)
[2019-07-26] MEDS ORDERED: Losartan 25 MG TAB PO SCH (09:00)
[2019-07-26] MEDS ORDERED: Azelastine 137 MCG/Spray 30 ML NS SCH (09:00)
[2019-07-26] MEDS ORDERED: FLU VACC TS2019-20(65YR UP)/PF 180 MCG/0.5 ML SYRINGE IM ONE (09:00)
[2019-07-26] MEDS ORDERED: Prevnar 13-Val Conj/PF 0.5 ML SYRINGE IM ONE (09:00)
[2019-07-26 10:55] VITALS: BP 127/67; TEMP 98.5
== END 2019-07-26 15:26 | disposition home or self-care (01) ==
LOC: SDC 05:48 → SURG B 12:15
PROVIDERS: ADMIT Neurological Surgery; ATTEND Neurological Surgery
PROC: 0RG20A0 Fusion of 2 or more Cervical Vertebral Joints with Interbody Fusion Device, Anterior Approach, Anterior Column, Open Approach (ICD-10-PCS; principal; 2019-07-25)
PROC: 0RT30ZZ Resection of Cervical Vertebral Disc, Open Approach (ICD-10-PCS; 2019-07-25)
DX: M50.01 Cervical disc disorder with myelopathy, high cervical region (principal); M50.123 Cervical disc disorder at C6-C7 level with radiculopathy; M47.12 Other spondylosis with myelopathy, cervical region; M47.22 Other spondylosis with radiculopathy, cervical region; E78.5 Hyperlipidemia, unspecified; I10 Essential (primary) hypertension; K22.70 Barrett's esophagus without dysplasia; M48.02 Spinal stenosis, cervical region; K21.9 Gastro-esophageal reflux disease without esophagitis; Z79.01 Long term (current) use of anticoagulants; Z79.899 Other long term (current) drug therapy; Z88.2 Allergy status to sulfonamides
CPT/HCPCS: 20930; 20936; 22551; 22552 ×2; 22853 ×3; 76000; 82962; 96361 ×2; 96374; 96375; 96376 ×2; C1713 ×2; C1776 ×2; G0378 ×2; 36416; J0690; J1100; J2001; J2270; J2370; J2405; J2704; J3010; J3490

== ENCOUNTER 2019-08-21 05:48 | Inpatient (IN) | payer MEDICARE, BC ==
[2019-08-21] MEDS ORDERED: Ondansetron PF 4 MG/2 ML Vial ONE ×2 (06:02→06:27)
[2019-08-21 06:08] LABS: #Eosinphils 0.1 thou/uL (0.0-0.7); #Monocytes 0.8 thou/uL (0.11-0.59); #Neutrophils 6.9 thou/uL (1.40-6.50); %Basophils 0.4 % (0.0-1.0); %Eosinophils 0.7 % (0.0-10.0); %Lymphocytes 20.7 % (21.0-51.0); %Monocytes 8.1 % (0.0-10.0); %Neutrophils 70.1 % (42.0-75.0); Hemoglobin 13.4 g/dL (14.0-18.0); Mean Corpuscular HGB CONC 33.7 g/dL (32.0-36.0); Mean Platelet Volume 7.4 fL (7.4-10.4); Platelet Count 183 thou/uL (130-400); RBC Distribution Width 10.7 % (11.5-14.5); Red Blood Cell (RBC) Count 4.05 mill/uL (4.70-6.10); White Blood Cell (WBC) Count 9.8 thou/uL (4.8-10.8)
[2019-08-21 06:16] LABS: INR-International Normal Ratio 1.2; PTT 25.7 SEC (22.9-36.1)
[2019-08-21 06:34] LABS: ALT (SGPT) 13 U/L (8-55); AST (SGOT) 14 U/L (5-34); Albumin 4.2 g/dL (3.4-4.8); Alkaline Phosphatase 91 U/L (40-110); Anion Gap 21 mmol/L (10-20); BUN (Urea Nitrogen) 18 mg/dL (8.4-25.7); Bilirubin, Total 1.1 mg/dL (0.2-1.2); Calc. Creatinine Clearance 0 mL/min (70-130); Calcium 9.2 mg/dL (7.8-10.44); Carbon Dioxide 20 mmol/L (23-31); Chloride 101 mmol/L (98-107); Estimated GFR-MDRD 61; Globulin 3.3 g/dL (2.4-3.5); Glucose 215 mg/dL (83-110); Lipase 28 U/L (8-78); Potassium 3.9 mmol/L (3.5-5.1); Protein, Total 7.5 g/dL (5.8-8.1); Sodium 138 mmol/L (136-145)
[2019-08-21] MEDS ORDERED: Piperacillin/Tazobactam 3.375 GM VIAL ONE (06:36)
[2019-08-21] MEDS ORDERED: Promethazine HCl 25 MG/ML VIAL ONE (07:20)
[2019-08-21] MEDS ORDERED: Morphine 4 MG/ML VIAL ONE (07:50)
--- NOTE | 2019-08-21 08:28 | CT ---
PRELIMINARY REPORT/[facility]/EMERGENCY AFTER HOURS PROCEDURE EXAM: CT Abdomen and Pelvis with Intravenous Contrast CLINICAL HISTORY: ER 3... M 74 presents to ER by EMS with c/o SOB. Pt reports that he had spinal effusion last month. P t reports onset of nausea and vomiting on that it has gotten worse. Pt reports that his last bowel movement was yesterday. Pt reports cough and chest pain when vomiting and that he is sligh tly SOB. TECHNIQUE: Axial computed tomography images of the abdomen and pelvis with intravenous contrast. CONTRAST: With; ISOVUE 370,100mL COMPARISON: None provided. FINDINGS: LUNG BASES: No basilar airspace consolidation or pleural effusion. LIVER: Unremarkable. GALLBLADDER AND BILE DUCTS: Unremarkable. No calcified stone. No ductal dilation. PANCREAS: Unremarkable. SPLEEN: Unremarkable. ADRENAL GLANDS: Unremarkable. KIDNEYS, URETERS, AND BLADDER: Unremarkable. No hydronephrosis or nephrolithiasis. No ureteral or bladder calculi. STOMACH AND BOWEL: No obstruction. No wall thickening. No CT evidence of colitis or acute diverticulitis. APPENDIX: The appendix appears normal. PERITONEUM: No free fluid. No free air. LYMPH NODES: No lymphadenopathy. REPRODUCTIVE: Unremarkable as visualized. VASCULATURE: There is a mild dilation of the bilateral common iliac vein and the IVC to the level of the IVC filte r with a subtle soft tissue stranding, thrombophlebitis is a consideration. BONES: No fracture or suspicious osseous abnormality. ABDOMINAL WALL AND SOFT TISSUES: Unremarkable. MISCELLANEOUS: There is beam hardening artifact from bilateral hip prostheses, obscure the pelvic examination. IMPRESSION: 1. There is a mild dilation of the bilateral common iliac vein and the IVC to the level of the IVC fi lter with a subtle soft tissue stranding, thrombophlebitis is a consideration. 2. There is beam hardening artifact from bilateral hip prostheses, obscure the pelvic examination. ELECTRONICALLY SIGNED BY: Luis Daniel Holloway MD Aug 21, 2019 7:54:45 AM CDT This report is intended for review by the ordering physician only, in accordance of law. If you recei ve this report in error, please call [facility] at [phone]. FINAL REPORT EXAM: CT ABDOMEN AND PELVIS HISTORY: Shortness of breath. Nausea and vomiting. COMPARISON: 08/05/2018 Procedure: Multiple contiguous axial images were obtained and a CT of the abdomen and pelvis with IV contrast. C oronal reformats were performed. FINDINGS: Lower Chest: within normal limits. Vessels: Normal caliber aorta Heart: Normal heart size Abdomen: Portal vein:Patent Gallbladder: No calcified gallstones. Normal caliber wall. Liver: within normal limits. Pancreas: within normal limits. Spleen: within normal limits. Adrenals: within normal limits. Kidneys: Symmetric enhancement. No obstructive uropathy. Peritoneum: No ascites or free air, no fluid collection. Bowel: Limited evaluation due to the lack of oral contrast administration. No evidence of bowel obstr uction. Ileocecal junction is unremarkable. Normal caliber appendix. Scattered fecal material in a nondistended, nondilated colon. Mesentery and Retroperitoneum: No enlarged mesenteric or retroperitoneal lymph nodes. Stable nonspeci fic stranding of the left abdominal mesenteric fat. Abdominal Wall: within normal limits. Incidentals: There is an IVC filter. There does appear to be fat stranding adjacent to both common il iac veins. Hyperdense material in the lumen distal to the IVC filter, suggest thrombus. Pelvis: Reproductive Organs: Reproductive organs are unremarkable. Pelvis: No mass, lymphadenopathy, free air or free fluid. Bladder: within normal limits. Bones: within normal limits. IMPRESSION: 1. This report is in agreement with initial report by [facility]. 2. Dilatation and adjacent fat stranding involving both iliac arteries and the IVC distal to the filt er. Correlate for thrombophlebitis. Hyperdense material does suggest a component of thrombus formation. Transcribed Date/Time: 08/21/2019 9:56 AM
--- NOTE | 2019-08-21 08:51 | CT ---
PRELIMINARY REPORT/[facility]/EMERGENCY AFTER HOURS PROCEDURE EXAM: CTA Chest with Intravenous Contrast CLINICAL HISTORY: ER 3... M 74 presents to ER by EMS with c/o SOB. Pt reports that he had spinal effusion last month. P t reports onset of nausea and vomiting on that it has gotten worse. Pt reports that his last bowel movement was yesterday. Pt reports cough and chest pain when vomiting and that he is sligh tly SOB. TECHNIQUE: Axial CTA images of the chest with intravenous contrast. MIP reconstructed images were created and re viewed. CONTRAST: With; ISOVUE 370,100mL COMPARISON: None provided. FINDINGS: PULMONARY ARTERIES There is no intraluminal filling defect suspicious for PE. AORTA No thoracic aortic aneurysm or dissection. LUNGS The lungs are clear. No pulmonary mass. No focal airspace consolidation. PLEURAL SPACES No pleural effusion. No pneumothorax. HEART AND MEDIASTINUM No cardiomegaly. No significant pericardial effusion. LYMPH NODES No lymphadenopathy. BONES No focal osseous abnormality or acute fracture. CHEST WALL AND UPPER ABDOMEN Images through the upper abdomen are unremarkable. The chest wall is unremarkable. IMPRESSION: Unremarkable CTA of the chest. ELECTRONICALLY SIGNED BY: Luis Daniel Holloway MD Aug 21, 2019 7:56:14 AM CDT This report is intended for review by the ordering physician only, in accordance of law. If you recei ve this report in error, please call [facility] at [phone]. FINAL REPORT Exam: CT angiogram of the chest HISTORY: Shortness of breath. Cough and chest pain. COMPARISON: 11/04/2016 TECHNIQUE: CT angiogram of the chest is performed in the axial plane. Three-dimensional reformatted i mages are submitted for interpretation FINDINGS: Mediastinum: No mass, lymphadenopathy or hematoma. HEART: Normal size. No significant pericardial fluid. Aorta: No aneurysm or dissection Upper solid abdominal viscera: No abnormality enhancement. Trachea and central bronchi: Patent Pleural spaces: No effusion Lung parenchyma: No masses or consolidation. Pneumothorax: None Osseous structures: No lytic or blastic lesions Pulmonary arteries: Adequate contrast opacification pulmonary arterial system to the level of segment al arteries. No new filling defect to suggest acute pulmonary embolism. There is a filling defect involving a segmental branch in the right lower lobe, similar to examinations from 2017 suggesting a chronic thrombus. IMPRESSION: 1. This report is in disagreement with initial report by [facility]. Initial report states that there is no pulmonary artery embolism. 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 2. No evidence of an acute pulmonary artery embolism to the level of segmental arteries. Code QD Transcribed Date/Time: 08/21/2019 9:59 AM
[2019-08-21 08:55] LABS: Lactic Acid 1.6 mmol/L (0.5-2.2)
--- NOTE | 2019-08-21 08:59 | RAD ---
Exam: Chest one view HISTORY:Shortness of breath Comparison: 05/15/2018 FINDINGS: Cardiac silhouette: Normal Aorta: Atherosclerosis Pulmonary vessels: Normal Costophrenic angles: Clear LUNGS: No masses or consolidation. Pneumothorax: None Osseous abnormalities: None IMPRESSION: No acute cardiopulmonary process. Atherosclerosis
--- NOTE | 2019-08-21 13:22 | CON ---
DATE OF CONSULTATION: HISTORY OF PRESENT ILLNESS: Mr. Mahoney is a 74-year-old gentleman, who has history of pulmonary emboli, hypercoagulable state, and needed to undergo a cervical spine procedure with Dr. Freeman. We placed a temporary prophylactic filter in him prior to his procedure. He was due to come in tomorrow for filter removal. He presented through the Emergency Department this afternoon with gagging and other abdominal complaints. Due to his complaints, they obtained a CT scan of his abdomen. The vena caval filter is appropriately placed on the CT scan. The vena cava and iliac veins caudad to the filter are dilated. The cephalad to the filter, the cava is completely collapsed. He has some pitting edema bilaterally in his lower extremities, which is unchanged from preop. Due to the CT scan findings, I feel the vena caval filter has thrombus within it - this was the purpose of the filter and it has done its job and I have reassured the patient that this is normal, if the filter has thrombus in it. In this situation, I have recommended that he go ahead and restart his Eliquis. He should keep the filter in place as the likelihood that he will need further procedures, where he will need to be off Eliquis in the future is high and therefore, he will be protected from future pulmonary embolic events. I have discussed this with both he and his and Dr. Freeman and all are in agreement. Job ID: [id number]
[2019-08-21 13:27] VITALS: BMI 30.3
[2019-08-21] MEDS ORDERED: Sodium Chloride 0.9% 1,000 ML IV SCH (13:30)
[2019-08-21] MEDS: Morphine 2 MG/ML SYRINGE SLOW IVP PRN ×3 (14:08→23:25)
[2019-08-21] MEDS: Ondansetron PF 4 MG/2 ML Vial IVP PRN ×2 (14:17→23:25)
[2019-08-21] MEDS ORDERED: Enoxaparin Sodium 40 MG/0.4 ML SYRINGE SC SCH (14:45)
[2019-08-21] MEDS ORDERED: Iopamidol 370 76% 100 ML VIAL ONE (15:12)
[2019-08-21] MEDS: Sodium Chloride 0.9% 1,000 ML IV SCH (15:50)
--- NOTE | 2019-08-21 16:40 | HP ---
PRIMARY CARE PROVIDER: Olena Howell MD CHIEF COMPLAINT: Nausea and vomiting. HISTORY OF PRESENT ILLNESS: Mr. Mahoney is a pleasant 74-year-old gentleman, who was seen at [facility] on August 21, 2019. 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 In July, he was scheduled to undergo cervical spine surgery. He was on Eliquis at that time. On July 22, 2019, he underwent inferior vena cava placement filter by Dr. Kenan Trevino. On July 25, he underwent cervical spine surgery. He was supposed to follow up with Dr. Trevino tomorrow for removal of the IVC filter. He has been off apixaban from the perioperative period. Four days ago, he started having nausea and vomiting. He reports vomiting multiple times as well as dry heaving. He reports mild abdominal discomfort, but is unable to characterize it further. He denies any chest pain. He denies any shortness of breath. He denies any fevers. His last bowel movement was yesterday. He presented to the emergency room mainly because of nausea and vomiting earlier today. In the emergency room, he had CT angiogram of the chest, which did not show pulmonary embolism. He also had CT scan of the abdomen and pelvis, which showed mild dilatation of bilateral common iliac vein and inferior vena cava to the level of the inferior vena cava filter with a subtle soft tissue stranding, thrombophlebitis is a consideration according to radiologist. Cardiovascular surgeon was consulted by emergency room physician and he informed that the patient most likely had venous thromboembolism that got stuck at the IVC filter level. The patient has been referred to Hospitalist Service for further management and admission. REVIEW OF SYSTEMS: All systems were reviewed and found to be negative except for the pertinent positives mentioned above. PAST MEDICAL HISTORY: Hypertension; dyslipidemia; prostate cancer, status post radiation and status post surgery; and pulmonary embolism x2. PAST SURGICAL HISTORY: Bilateral hip replacements, prostate cancer surgery, and cervical spine surgery. SOCIAL HISTORY: The patient denies tobacco use, alcohol use, or recreational drug use. FAMILY HISTORY: Stroke in his mother. ALLERGIES: SULFA. HOME MEDICATIONS: 1. Acetaminophen p.r.n. 2. Amlodipine 5 mg at bedtime. 3. Azelastine nasal spray one spray to each naris 2 times a day. 4. Escitalopram 10 mg daily. 5. Esomeprazole 40 mg 2 times a day. 6. Losartan 25 mg daily. 7. Multivitamins one tablet daily. 8. Tramadol p.r.n. 9. Lipitor 10 mg at bedtime. 10. Singulair 10 mg every evening. PHYSICAL EXAMINATION: GENERAL: On examination, Mr. Mahoney is awake and alert, not in acute distress. He is obese, with a BMI of 30.3. Blood pressure is 139/85, pulse 100, respiratory rate 18, and oxygen saturation 98% on room air. He is afebrile. EYES: No scleral icterus. No conjunctival pallor. ENT: Moist mucosal membranes. No oropharyngeal erythema or exudates. NECK: Supple and nontender. Trachea is midline. RESPIRATORY: Accessory muscles of breathing are not active. Chest wall movements are symmetric bilaterally. LUNGS: Clear to auscultation without wheeze, rhonchi, or crepitations. CARDIOVASCULAR: S1 and S2 are heard, regular. Peripheral pulses palpable. ABDOMEN: Soft and nontender. Bowel sounds are heard. NEUROLOGIC: Cranial nerves 2 through 12 are intact. MUSCULOSKELETAL: Power is 5/5 in all 4 extremities. SKIN: Bilateral lower extremity edema. LYMPHATIC: No cervical lymphadenopathy. PSYCHIATRIC: Normal mood. Normal affect. The patient is oriented to person, place, and time. LABORATORY DATA: Mr. Mahoney's labs and investigations were reviewed. I reviewed his 12-lead electrocardiogram, which showed sinus tachycardia with premature atrial complexes. I also reviewed his chest x-ray, which does not show any pulmonary infiltrates. CT angiogram of the chest showed no evidence of pulmonary embolism. CT scan of the abdomen and pelvis showed the findings described earlier. He has normal white count, normocytic anemia with hemoglobin 13.4, normal platelet count, INR 1.2, normal sodium, normal potassium, mildly decreased carbon dioxide of 20, mildly elevated anion gap of 21, normal creatinine, lactic acid elevated at 3.8, subsequently trending down to 1.6, and normal LFTs. Lipase is normal. Troponin I and BNP are normal. ASSESSMENT AND PLAN: Mr. Mahoney is a pleasant 74-year-old gentleman, who was seen at [facility] on August 21, 2019. His problem list includes: 1. Nausea and vomiting: Mr. Mahoney is presenting with nausea and vomiting, most likely secondary to viral gastroenteritis. He will be admitted to the hospital for further management. 2. History of venous thromboembolism: Mr. Mahoney appears to have had another episode of venous thromboembolism. Cardiovascular Surgery Service has been consulted. We will await their opinion and help with management. 3. Hypertension: Resume home medications once clarified, hypertension appears to be controlled. 4. Dyslipidemia: Resume statin. 5. History of prostate cancer, nil acute. Many thanks for allowing me to participate in your patient's care. Please feel free to contact me with any questions or concerns. LEVEL OF RISK: High. LEVEL OF COMPLEXITY: High. Job ID: [id number]
[2019-08-21] MEDS: Ketorolac Tromethamine 30 MG/ML VIAL IVP PRN (16:54)
[2019-08-21] MEDS: Atorvastatin Calcium 10 MG TAB PO SCH (20:35)
[2019-08-21] MEDS: Amlodipine 5 MG TAB PO SCH (20:35)
[2019-08-21] MEDS: Montelukast Sodium 10 mg Tablet PO SCH (20:35)
[2019-08-21] MEDS: Azelastine 137 MCG/Spray 30 ML NS SCH (20:35)
[2019-08-22] MEDS: Sodium Chloride 0.9% 1,000 ML IV SCH ×2 (05:33→21:17)
[2019-08-22] MEDS: Morphine 2 MG/ML SYRINGE SLOW IVP PRN ×3 (06:28→20:43)
[2019-08-22] MEDS: Ondansetron PF 4 MG/2 ML Vial IVP PRN ×2 (06:28→12:37)
[2019-08-22] MEDS ORDERED: Enoxaparin Sodium 40 MG/0.4 ML SYRINGE SC SCH (09:00)
[2019-08-22] MEDS: Multivit, Therapeutic 1 TAB PO SCH (09:22)
[2019-08-22] MEDS: Losartan 25 MG TAB PO SCH (09:22)
[2019-08-22] MEDS: Escitalopram Oxalate 10 mg Tablet PO SCH (09:22)
[2019-08-22] MEDS: Azelastine 137 MCG/Spray 30 ML NS SCH ×2 (09:23→20:38)
[2019-08-22] MEDS: Ketorolac Tromethamine 30 MG/ML VIAL IVP PRN (12:08)
[2019-08-22] MEDS ORDERED: Promethazine HCl 25 MG/ML VIAL IM/IV PRN (13:26)
--- NOTE | 2019-08-22 14:28 | PDOC.HOSPP ---
- Subjective Encounter Date: 08/22/19 Encounter Time: 08:00 Subjective: Pt seen for followup re: gastroenteritis. Feels slightly better today. - Objective Vital Signs & Weight: Vital Signs (12 hours) Temp Pulse Resp BP BP Pulse Ox 08/22/19 12:17 98.5 F 93 20 145/75 H 94 L 08/22/19 08:00 95 08/22/19 07:39 98.2 F 90 18 141/77 H 95 08/22/19 03:53 98 F 82 18 122/59 L 93 L Weight Admit Weight 188 lb Weight 188 lb I&O: 08/21/19 08/22/19 08/23/19 06:59 06:59 06:59 Intake Total 1440 Output Total 750 Balance 690 Result Diagrams: 08/21/19 05:59 08/21/19 05:59 Additional Labs: Labs and MARs reviewed by me EKG Reviewed by me: Yes (Tele: NSR) Hospitalist ROS - Review of Systems Cardiovascular: denies: chest pain, palpitations, orthopnea, paroxysmal noc. dyspnea, edema, light headedness Gastrointestinal: reports: nausea, abdominal pain Genitourinary: denies: dysuria, frequency, incontinence, hematuria, retention - Medication Medications: Active Medications Generic Name Dose Route Start Last Admin Trade Name Freq PRN Reason Stop Dose Admin Amlodipine Besylate 5 mg 08/21/19 21:00 08/21/19 20:35 Norvasc PO 5 mg HS KRYS Administration Atorvastatin Calcium 10 mg 08/21/19 21:00 08/21/19 20:35 Lipitor PO 10 mg HS KRYS Administration Azelastine HCl 0 ml 08/21/19 21:00 08/22/19 09:23 Azelastine NS 1 spr BID KRYS Administration Enoxaparin Sodium 40 mg 08/22/19 09:00 08/22/19 09:22 Lovenox SC 40 mg 0900 KRYS Administration Escitalopram Oxalate 10 mg 08/22/19 09:00 08/22/19 09:22 Lexapro PO 10 mg DAILY KRYS Administration Sodium Chloride 1,000 mls @ 70 mls/hr 08/21/19 15:45 08/22/19 05:33 Normal Saline 0.9% IV 1,000 mls .[id number] KRYS Administration Ketorolac Tromethamine 15 mg 08/21/19 13:58 08/22/19 12:08 Toradol IVP 08/26/19 13:59 15 mg Q6H PRN Administration Mild-Moderate Pain (1-5) Losartan Potassium 25 mg 08/22/19 09:00 08/22/19 09:22 Cozaar PO 25 mg QAM KRYS Administration Montelukast Sodium 10 mg 08/21/19 21:00 08/21/19 20:35 Singulair PO 10 mg QPM KRYS Administration Morphine Sulfate 2 mg 08/21/19 13:57 08/22/19 06:28 Morphine SLOW IVP 2 mg Q4H PRN Administration Moderate to Severe Pain (6-10) Multivitamins 1 tab 08/22/19 09:00 08/22/19 09:22 Theragran PO 1 tab DAILY KRYS Administration Ondansetron HCl 4 mg 08/21/19 13:57 08/22/19 12:37 Zofran IVP 4 mg Q6H PRN Administration Nausea/Vomiting Pantoprazole Sodium 40 mg 08/21/19 21:00 08/22/19 09:22 Protonix PO 40 mg BID KRYS Administration - Exam General - other findings: Obese Eye: anicteric sclera ENT: moist mucosa Neck: supple Heart: RRR, no rubs Respiratory: CTAB Gastrointestinal: soft, non-tender Skin: no rashes Psychiatric: normal affect, normal behavior Hosp A/P (1) Gastroenteritis Code(s): K52.9 - NONINFECTIVE GASTROENTERITIS AND COLITIS, UNSPECIFIED Status : Acute (2) VTE (venous thromboembolism) Code(s): I82.90 - ACUTE EMBOLISM AND THROMBOSIS OF UNSPECIFIED VEIN Status: Acute (3) Dyslipidemia Code(s): E78.5 - HYPERLIPIDEMIA, UNSPECIFIED Status: Chronic (4) H/O prostate cancer Code(s): Z85.46 - PERSONAL HISTORY OF MALIGNANT NEOPLASM OF PROSTATE Status: Chronic - Plan Continue IV fluids, pt is improving. No fevers. Start apixaban, discontinue enoxaparin.
[2019-08-22] MEDS ORDERED: Promethazine HCl 25 MG in Sodium Chloride 0.9% 50 ML IVPB PRN (15:36)
[2019-08-22] MEDS ORDERED: Promethazine HCl 25 MG/ML VIAL IM PRN (15:45)
[2019-08-22] MEDS: Montelukast Sodium 10 mg Tablet PO SCH (20:38)
[2019-08-22] MEDS: Atorvastatin Calcium 10 MG TAB PO SCH (20:39)
[2019-08-22] MEDS: Apixaban 5 MG TAB PO SCH (20:39)
[2019-08-22] MEDS: Amlodipine 5 MG TAB PO SCH (20:39)
[2019-08-23] MEDS: Morphine 2 MG/ML SYRINGE SLOW IVP PRN ×2 (03:28→08:52)
[2019-08-23] MEDS: Ondansetron PF 4 MG/2 ML Vial IVP PRN ×2 (03:28→08:52)
[2019-08-23] MEDS: Sodium Chloride 0.9% 1,000 ML IV SCH (03:32)
[2019-08-23 08:50] LABS: #Eosinphils 0.1 thou/uL (0.0-0.7); #Lymphocytes 0.8 thou/uL (1.20-3.40); #Monocytes 0.4 thou/uL (0.11-0.59); #Neutrophils 4.4 thou/uL (1.40-6.50); %Basophils 0.7 % (0.0-1.0); %Eosinophils 1.1 % (0.0-10.0); %Lymphocytes 14.3 % (21.0-51.0); %Monocytes 7.4 % (0.0-10.0); %Neutrophils 76.5 % (42.0-75.0); Hemoglobin 11.1 g/dL (14.0-18.0); Mean Corpuscular HGB CONC 35.3 g/dL (32.0-36.0); Mean Corpuscular Hemoglobin 34.8 pg (27.0-31.0); Mean Corpuscular Volume 98.6 fL (78.0-98.0); Mean Platelet Volume 7.4 fL (7.4-10.4); Platelet Count 129 thou/uL (130-400); RBC Distribution Width 10.6 % (11.5-14.5); Red Blood Cell (RBC) Count 3.19 mill/uL (4.70-6.10); White Blood Cell (WBC) Count 5.8 thou/uL (4.8-10.8)
[2019-08-23] MEDS: Multivit, Therapeutic 1 TAB PO SCH (08:54)
[2019-08-23] MEDS: Apixaban 5 MG TAB PO SCH (08:54)
[2019-08-23] MEDS: Azelastine 137 MCG/Spray 30 ML NS SCH (08:54)
[2019-08-23] MEDS: Escitalopram Oxalate 10 mg Tablet PO SCH (08:54)
[2019-08-23] MEDS: Losartan 25 MG TAB PO SCH (08:54)
[2019-08-23 09:06] LABS: Anion Gap 11 mmol/L (10-20); BUN (Urea Nitrogen) 21 mg/dL (8.4-25.7); Calc. Creatinine Clearance 106 mL/min (70-130); Calcium 8.3 mg/dL (7.8-10.44); Carbon Dioxide 25 mmol/L (23-31); Chloride 104 mmol/L (98-107); Estimated GFR-MDRD Greater than 90; Glucose 159 mg/dL (83-110); Potassium 3.7 mmol/L (3.5-5.1); Sodium 136 mmol/L (136-145)
--- NOTE | 2019-08-23 11:38 | DIS ---
DATE OF ADMISSION: 08/21/2019 DATE OF DISCHARGE: 08/23/2019 PRIMARY CARE PROVIDER: Olena Howell MD DISCHARGE DIAGNOSES: 1. Viral gastroenteritis. 2. Venous thromboembolism. 3. Lactic acidosis. CONDITION: Condition of the patient on the day of discharge, stable. I assessed Mr. Mahoney on the day of discharge. He denies any chest pain or shortness of breath. Vital signs are stable. S1 and S2 are heard, regular. Lungs are clear to auscultation bilaterally. CONSULTATIONS DURING THIS HOSPITALIZATION: Cardiovascular Surgery, Dr. Kenan Trevino. DISCHARGE MEDICATIONS: He has been restarted on apixaban 5 mg 2 times a day. Otherwise, no change was made to his pre-admission home medications as dictated in my history and physical note dated August 21, 2019. HOSPITAL COURSE: Mr. Mahoney is a pleasant 74-year-old gentleman, who was admitted to [facility] on August 21, 2019, for viral gastroenteritis. He also had abnormal findings on CT scan. He was seen by cardiovascular surgeon, who felt that his IVC filter has thrombus within it. He recommended the patient should restart his Eliquis and keep the filter in place. He improved in terms of nausea and vomiting. He received intravenous hydration. He also ambulated well. He is being discharged home in a stable condition. On the day of discharge, he has sodium 136, potassium 3.7, and creatinine 0.75. White count 5800, hemoglobin 11.1, and platelet count 129,000. Many thanks for allowing me to participate in your patient's care. Please feel free to contact me with any questions or concerns. ACTIVITY: As tolerated. DIET: Heart healthy. POST-ACUTE CARE FOLLOWUP: With primary care provider in 3 days. DISCHARGE DESTINATION: Home. TIME SPENT: Total amount of time spent in coordinating this discharge: 32 minutes. Job ID: [id number]
[2019-08-23 11:40] VITALS: BP 143/73; TEMP 98.2
--- NOTE | 2019-08-25 14:47 | EKG ---
Test Reason : Blood Pressure : / mmHG Vent. Rate : 118 BPM Atrial Rate : 118 BPM P-R Int : 112 ms QRS Dur : 086 ms QT Int : 324 ms P-R-T Axes : 007 -02 052 degrees QTc Int : 454 ms Sinus tachycardia with Premature atrial complexes with Abberant conduction Nonspecific ST abnormality No STEMI Abnormal ECG Confirmed by RANDY OSBORN M.D. ([id number]), content editor CHEYANNE GIL ([id number]) on 08/25/2019 2:46:58 PM Referred By: Confirmed By:RANDY OSBORN M.D.
== END 2019-08-23 13:01 | disposition home or self-care (01) | DRG 314 ==
LOC: ERS 05:48 → 2NO 10:17
PROVIDERS: ADMIT Internal Medicine; ATTEND Internal Medicine
DX: T82.868A Thrombosis due to vascular prosthetic devices, implants and grafts, initial encounter (principal); I82.220 Acute embolism and thrombosis of inferior vena cava; D68.59 Other primary thrombophilia; E87.2 Acidosis; A08.4 Viral intestinal infection, unspecified; I10 Essential (primary) hypertension; Y83.8 Other surgical procedures as the cause of abnormal reaction of the patient, or of later complication, without mention of misadventure at the time of the procedure; Z96.643 Presence of artificial hip joint, bilateral; E66.9 Obesity, unspecified; E78.5 Hyperlipidemia, unspecified; Z85.46 Personal history of malignant neoplasm of prostate; Z86.711 Personal history of pulmonary embolism; Z88.2 Allergy status to sulfonamides; Z79.899 Other long term (current) drug therapy; Z68.30 Body mass index [BMI] 30.0-30.9, adult
CPT/HCPCS: 36415; 71045; 71275; 74177; 80048; 80053; 83605; 83690; 83880; 84484; 85025; 85610; 85730; 93005; 96361; 96365; 96375; J1650; J1885; J2270; J2405; J2543; J2550; Q9967

== ENCOUNTER 2019-09-12 09:29 | Outpatient (CLI) | payer MEDICARE, BC ==
--- NOTE | 2019-09-12 11:54 | RAD ---
CERVICAL SPINE 5 VIEWS: Date: 09/12/2019 INDICATION: Neck pain. Postop cervical spine. COMPARISON: 03/09/2019. FINDINGS: Postoperative changes are noted since prior study. A disc implant has been placed at the C3-4 level. This implant appears adequately positioned. Anterior fusion procedure with anterior plate and screws transfixing C5, C6, and C7 with interbody im plants at these levels is now noted. Review of posterior alignment reveals a mild anterolisthesis at C4-5, similar to the prior study. This does not appear to change on flexion or extension. There are degenerative changes again noted with anterior osteophytes and posterior spondylosis. IMPRESSION: Postop changes of cervical spine now noted as described. POS: EDUARDO
== END 2019-09-12 09:30 | disposition home or self-care (01) ==
LOC: BICRAD 09:29
PROVIDERS: ATTEND Neurological Surgery
DX: M54.2 Cervicalgia (principal); Z98.1 Arthrodesis status
CPT/HCPCS: 72050

== ENCOUNTER 2020-03-28 11:30 | Outpatient (CLI) | payer MEDICARE, BC ==
--- NOTE | 2020-03-28 11:46 | RAD ---
2 views of the right wrist: 03/28/2020 COMPARISON: None available HISTORY: Right wrist injury FINDINGS: There is moderate radiocarpal joint space narrowing. There is prominent degenerative change of the distal radioulnar joint. No widening of the scapholunate interval. No displaced fracture or dislocation. Dorsal soft tissue swelling is suspected on the lateral exam. There is prominent degener ative change involving the distal carpal row laterally and involving the distal aspect of the scaphoid. IMPRESSION: Significant degenerative change. No displaced fracture or dislocation. Recommend follow-u p in 7-10 days if symptoms persist.
== END 2020-03-28 11:31 | disposition home or self-care (01) ==
LOC: BICRAD 11:30
PROVIDERS: ATTEND Family Medicine
DX: M25.531 Pain in right wrist (principal); M19.031 Primary osteoarthritis, right wrist

== ENCOUNTER 2021-05-08 08:00 | Outpatient (CLI) | payer MEDICARE, BC | END 2021-05-08 08:01 | disposition home or self-care (01) | LOC: BICRAD 08:00 | PROVIDERS: ATTEND Family Medicine | DX: M79.652 Pain in left thigh (principal); M47.816 Spondylosis without myelopathy or radiculopathy, lumbar region | CPT/HCPCS: 72100 ==

== ENCOUNTER 2022-03-29 11:37 | Emergency (ER) | payer MEDICARE, BC ==
[2022-03-29 12:08] LABS: #Basophils 0.1 thou/uL (0.0-0.2); #Lymphocytes 1.7 thou/uL (1.20-3.40); #Monocytes 0.4 thou/uL (0.11-0.59); #Neutrophils 2.8 thou/uL (1.40-6.50); %Basophils 2.2 % (0.0-1.0); %Eosinophils 0.7 % (0.0-10.0); %Monocytes 8.4 % (0.0-10.0); %Neutrophils 54.7 % (42.0-75.0); Hemoglobin 15.1 g/dL (14.0-18.0); Mean Corpuscular HGB CONC 32.4 g/dL (32.0-36.0); Mean Corpuscular Hemoglobin 32.4 pg (27.0-31.0); Mean Platelet Volume 7.3 fL (7.4-10.4); Platelet Count 221 thou/uL (130-400); RBC Distribution Width 11.5 % (11.5-14.5); Red Blood Cell (RBC) Count 4.65 mill/uL (4.70-6.10)
[2022-03-29 12:29] LABS: ALT (SGPT) 27 U/L (8-55); AST (SGOT) 21 U/L (5-34); Albumin 4.3 g/dL (3.4-4.8); Alkaline Phosphatase 99 U/L (40-110); Anion Gap 15 mmol/L (10-20); BUN (Urea Nitrogen) 11 mg/dL (8.4-25.7); Bilirubin, Total 0.8 mg/dL (0.2-1.2); Calc. Creatinine Clearance 0 mL/min (70-130); Calcium 8.8 mg/dL (7.8-10.44); Carbon Dioxide 22 mmol/L (23-31); Chloride 106 mmol/L (98-107); Estimated GFR 92; Globulin 3.1 g/dL (2.4-3.5); Glucose 123 mg/dL (83-110); Potassium 4.2 mmol/L (3.5-5.1); Protein, Total 7.4 g/dL (5.8-8.1); Sodium 139 mmol/L (136-145)
[2022-03-29 14:15] LABS: PTT 26.9 sec (22.9-36.1); Prothrombin Time 12.8 sec (12.0-14.7)
[2022-03-29 15:16] LABS: Bilirubin Negative (Negative); Blood, Urine 3+ (Negative); Clarity Clear (Clear); Glucose, Urine (Dipstick) Normal (Negative); Ketone, Urine Negative (Negative); Leukocyte Negative Leu/uL (Negative); Nitrite Negative (Negative); Protein, Urine (Dipstick) 30 mg/dL (Neg-Trace); RBC/HPF Greater than 50 HPF (0-3); Specific Gravity, Urine 1.007 (1.002-1.036); Squamous Epithelial None Seen HPF (0-3); Urobilinogen Normal mg/dL (Less than 2)
[2022-03-29 15:25] LABS: Bacteria/HPF 1+ HPF (None Seen)
== END 2022-03-29 17:10 | disposition home or self-care (01) ==
LOC: ERS 11:37
DX: R33.9 Retention of urine, unspecified (principal); R31.9 Hematuria, unspecified; M79.3 Panniculitis, unspecified; I10 Essential (primary) hypertension; E78.5 Hyperlipidemia, unspecified; Z79.899 Other long term (current) drug therapy
CPT/HCPCS: 36415; 51702; 74176; 80053; 81003; 81015; 83605; 85025; 85610; 85730; 86850; 86900; 86901; 87086

== ENCOUNTER 2022-04-14 07:46 | Outpatient (CLI) | payer MEDICARE, BC | END 2022-04-14 07:47 | disposition home or self-care (01) | LOC: RAD 07:46 | PROVIDERS: ATTEND Internal Medicine Critical Care Medicine | DX: R06.00 Dyspnea, unspecified (principal) | CPT/HCPCS: 36415; 71046; 80053; 80061; 85025 ==

== ENCOUNTER 2022-06-13 13:56 | Outpatient (CLI) | payer MEDICARE, BC ==
[2022-06-13 14:52] LABS: Hemoglobin 14.1 g/dL (13.5-17.5); Mean Corpuscular HGB CONC 34.9 g/dL (32.0-36.0); Mean Corpuscular Hemoglobin 33.1 pg (27.0-33.0); Mean Corpuscular Volume 94.8 fl (81.2-95.1); Mean Platelet Volume 9.6 fl (7.4-10.4); Platelet Count 222 10x3/uL (150-450); RBC Distribution Width 12.3 % (11.5-14.5); Red Blood Cell (RBC) Count 4.26 10x6/uL (4.32-5.72); White Blood Cell (WBC) Count 5.4 10x3/uL (3.5-10.5)
[2022-06-13 14:58] LABS: Bilirubin Neg (Negative); Blood, Urine 10 (Negative); Clarity Clear (Clear); Glucose, Urine (Dipstick) Normal (Negative); Ketone, Urine Negative (Negative); Leukocyte Negative (Negative); Nitrite Negative (Negative); Protein, Urine (Dipstick) Negative (Neg-Trace); Specific Gravity, Urine 1.015 (1.005-1.030); Urobilinogen Normal mg/dL (Less than 2)
[2022-06-13 14:58] LABS: Anion Gap 12 mmol/L (10-20); BUN (Urea Nitrogen) 14 mg/dL (8.4-25.7); Calc. Creatinine Clearance 0 mL/min (70-130); Calcium 8.6 mg/dL (7.8-10.44); Carbon Dioxide 26 mmol/L (23-31); Chloride 106 mmol/L (98-107); Estimated GFR 90; Glucose 94 mg/dL (83-110); Sodium 140 mmol/L (136-145)
[2022-06-13 15:00] LABS: PTT 24.8 sec (22.0-33.0); Prothrombin Time 10.9 sec (9.5-12.1)
[2022-06-13 15:31] LABS: Bacteria/HPF Rare-Few HPF (None Seen); Squamous Epithelial 0-3 HPF (0-3); WBC/HPF 0-3 HPF (0-3)
[2022-06-13 15:32] LABS: Mucous/LPF 2+ LPF (<2+); RBC/HPF 0-3 HPF (0-3)
== END 2022-06-13 13:57 | disposition home or self-care (01) ==
LOC: LABBT 13:56
PROVIDERS: ATTEND Urology
DX: Z01.818 Encounter for other preprocedural examination (principal); C61 Malignant neoplasm of prostate; I82.409 Acute embolism and thrombosis of unspecified deep veins of unspecified lower extremity; N30.40 Irradiation cystitis without hematuria; I26.99 Other pulmonary embolism without acute cor pulmonale; N32.0 Bladder-neck obstruction; R33.9 Retention of urine, unspecified; Z87.448 Personal history of other diseases of urinary system
CPT/HCPCS: 80048; 81001; 85027; 85610; 85730; 87086; 93005; 93010

== ENCOUNTER 2022-06-25 07:37 | Day surgery (SDC) | payer MEDICARE, BC ==
[2022-06-24 12:29] VITALS: BMI 29.3
[2022-06-25] MEDS ORDERED: Iopamidol 30 ML ONE (09:29)
[2022-06-25] MEDS ORDERED: fentaNYL PF 100 MCG/2 ML SYRINGE ONE (09:35)
[2022-06-25] MEDS ORDERED: Ondansetron PF 4 MG/2 ML Vial ONE (09:47)
[2022-06-25] MEDS ORDERED: PROPOFOL 200 MG/20 ML VIAL ONE (09:47)
[2022-06-25] MEDS ORDERED: ePHEDrine 50 MG/ML VIAL ONE (09:47)
[2022-06-25] MEDS ORDERED: Levofloxacin 500 mg/D5W 100 ml Premix Bag ONE (09:57)
[2022-06-25] MEDS ORDERED: Oxybutynin 5 MG TAB ONE (10:53)
[2022-06-25] MEDS ORDERED: Phenazopyridine HCl 100 MG TAB ONE (10:53)
== END 2022-06-25 12:30 | disposition home or self-care (01) ==
LOC: SDC 07:37
PROVIDERS: ATTEND Urology
PROC: 0T7C8ZZ Dilation of Bladder Neck, Via Natural or Artificial Opening Endoscopic (ICD-10-PCS; principal; 2022-06-25)
DX: N32.0 Bladder-neck obstruction (principal); N30.40 Irradiation cystitis without hematuria; E78.5 Hyperlipidemia, unspecified; I25.10 Atherosclerotic heart disease of native coronary artery without angina pectoris; Z85.46 Personal history of malignant neoplasm of prostate; Z86.14 Personal history of Methicillin resistant Staphylococcus aureus infection; Z86.711 Personal history of pulmonary embolism; Z86.718 Personal history of other venous thrombosis and embolism; Z87.891 Personal history of nicotine dependence; Z79.01 Long term (current) use of anticoagulants; Z79.899 Other long term (current) drug therapy; Z88.2 Allergy status to sulfonamides
CPT/HCPCS: J1956; J2405; J2704; J3490; Q9967

== ENCOUNTER 2023-07-02 15:26 | Outpatient (CLI) | payer MEDICARE, BC ==
[2023-07-02 16:31] LABS: Bilirubin Neg (Negative); Blood, Urine Negative (Negative); Clarity Clear (Clear); Glucose, Urine (Dipstick) Normal (Negative); Ketone, Urine Negative (Negative); Leukocyte Negative (Negative); Nitrite Negative (Negative); Protein, Urine (Dipstick) Negative (Neg-Trace); Urobilinogen Normal mg/dL (Less than 2)
[2023-07-02 16:51] LABS: Bacteria/HPF None Seen HPF (None Seen); RBC/HPF None Seen HPF (0-3); Squamous Epithelial 0-3 HPF (0-3); WBC/HPF None Seen HPF (0-3)
[2023-07-02 17:02] LABS: Hematocrit 39.8 % (38.8-50.0); Hemoglobin 13.7 g/dL (13.5-17.5); Mean Corpuscular HGB CONC 34.4 g/dL (32.0-36.0); Mean Corpuscular Hemoglobin 32.9 pg (27.0-33.0); Mean Corpuscular Volume 95.4 fl (81.2-95.1); Platelet Count 198 10x3/uL (150-450); RBC Distribution Width 12.4 % (11.5-14.5); Red Blood Cell (RBC) Count 4.17 10x6/uL (4.32-5.72); White Blood Cell (WBC) Count 4.7 10x3/uL (3.5-10.5)
[2023-07-02 17:04] LABS: Prothrombin Time 10.9 sec (9.5-12.1)
[2023-07-02 17:07] LABS: Anion Gap 14 mmol/L (10-20); BUN (Urea Nitrogen) 11 mg/dL (8.4-25.7); Calc. Creatinine Clearance 0 mL/min (70-130); Calcium 8.2 mg/dL (7.8-10.44); Carbon Dioxide 23 mmol/L (23-31); Chloride 106 mmol/L (98-107); Estimated GFR 93; Glucose 95 mg/dL (83-110); Potassium 4.1 mmol/L (3.5-5.1); Sodium 139 mmol/L (136-145)
== END 2023-07-02 15:27 | disposition home or self-care (01) ==
LOC: LABBT 15:26
PROVIDERS: ATTEND Urology
DX: Z01.818 Encounter for other preprocedural examination (principal); C61 Malignant neoplasm of prostate; N30.40 Irradiation cystitis without hematuria; I26.99 Other pulmonary embolism without acute cor pulmonale; I82.409 Acute embolism and thrombosis of unspecified deep veins of unspecified lower extremity; N32.0 Bladder-neck obstruction; R33.9 Retention of urine, unspecified; Z87.448 Personal history of other diseases of urinary system
CPT/HCPCS: 80048; 81001; 85027; 85610; 87086; 93005; 93010

== ENCOUNTER 2023-07-15 08:10 | Day surgery (SDC) | payer MEDICARE, BC ==
[2023-07-02 15:54] VITALS: BMI 29.0
[2023-07-15] MEDS ORDERED: LevoFLOXacin D5W 500 mg (100 mL) BAG ONE (10:06)
[2023-07-15] MEDS ORDERED: PROPOFOL 20 ML ONE (11:28)
[2023-07-15] MEDS ORDERED: fentaNYL PF 100 MCG/2 ML SYRINGE ONE (11:29)
[2023-07-15] MEDS ORDERED: Lidocaine 2% PF 5 ML VIAL ONE (11:29)
[2023-07-15] MEDS ORDERED: Ondansetron PF 4 MG/2 ML Vial ONE (12:15)
[2023-07-15] MEDS ORDERED: Oxybutynin 5 MG TAB ONE (13:11)
[2023-07-15] MEDS ORDERED: Phenazopyridine HCl 100 MG TAB ONE (13:11)
== END 2023-07-15 14:33 | disposition home or self-care (01) ==
LOC: SDC 08:10
PROVIDERS: ATTEND Urology
PROC: 0T7B8ZZ Dilation of Bladder, Via Natural or Artificial Opening Endoscopic (ICD-10-PCS; principal; 2023-07-15)
DX: N32.0 Bladder-neck obstruction (principal); N30.40 Irradiation cystitis without hematuria; R33.9 Retention of urine, unspecified; K22.70 Barrett's esophagus without dysplasia; E78.5 Hyperlipidemia, unspecified; J31.0 Chronic rhinitis; I25.10 Atherosclerotic heart disease of native coronary artery without angina pectoris; C61 Malignant neoplasm of prostate; I26.99 Other pulmonary embolism without acute cor pulmonale; I82.409 Acute embolism and thrombosis of unspecified deep veins of unspecified lower extremity; Z86.718 Personal history of other venous thrombosis and embolism; Z86.711 Personal history of pulmonary embolism; Z79.899 Other long term (current) drug therapy; Z79.82 Long term (current) use of aspirin; Z79.51 Long term (current) use of inhaled steroids; Z98.890 Other specified postprocedural states; Z88.8 Allergy status to other drugs, medicaments and biological substances; Z88.1 Allergy status to other antibiotic agents; Z88.2 Allergy status to sulfonamides; Z87.448 Personal history of other diseases of urinary system; Z90.79 Acquired absence of other genital organ(s)
CPT/HCPCS: C1769; J1956; J2001; J2405; J2704

== ENCOUNTER 2023-10-20 08:41 | Outpatient (CLI) | payer MEDICARE, BC | END 2023-10-20 08:42 | disposition home or self-care (01) | LOC: BICRAD 08:41 | PROVIDERS: ATTEND Nurse Practitioner Family | DX: N30.41 Irradiation cystitis with hematuria (principal) | CPT/HCPCS: 71046 ==